=== PATIENT | female | born 1960 | race Caucasian/White ===

== ENCOUNTER 2020-04-20 13:25 | Emergency (ER) | payer BC, SELFPAY ==
[2020-04-20 13:26] VITALS: BP 155/79; PULSE 69; RESP 18; TEMP 36.5; O2SAT 98; BMI 39.9
--- NOTE | 2020-04-20 13:40 | CT_ITS ---
STUDY: CT ABDOMEN AND PELVIS WITH CONTRAST REASON FOR EXAM: Female, 60 years old. Trauma, fell off golf cart landing on butt and back, severe pelvic pain. Hx hypertension. RADIATION DOSAGE (If Supplied By Facility): CTDIvol = ( 18.48 ) mGy, DLP = ( 1378.95 ) mGycm TECHNIQUE: Transaxial images were obtained from the dome of the diaphragm to the symphysis pubis without oral contrast. IV 100mL Isovue-300 was administered. Sagittal and coronal images were reconstructed. Individualized dose optimization techniques were used for this CT. COMPARISON: None. FINDINGS: The visualized lung bases are unremarkable. The visualized portions of the heart are within normal limits. Normal liver. Normal gallbladder and extrahepatic biliary system. Normal spleen. Normal pancreas. Normal bilateral adrenal glands. Normal right kidney. Normal left kidney. There is a small hiatal hernia. Normal small intestine. There are multiple colonic diverticula consistent with diverticulosis. The appendix is visualized and appears normal. There is diffuse atherosclerotic calcification of the abdominal aorta, without a demonstrated aneurysm. Normal inferior vena cava. Normal retroperitoneum. Normal urinary bladder. There is absence of the uterus consistent with a prior hysterectomy. Normal abdominal wall. No demonstrated fracture of the lumbar spine, pelvis or sacrum. There is soft tissue density posterior to the coccyx on image 108 of series 2, possibly representing contusion. CT/Abdomen/Pelvis WITH Contrast IMPRESSION: 1. No solid organ injury, pneumoperitoneum or free fluid. 2. Soft tissue induration posterior to the coccyx may represent contusion. No demonstrated fracture. Electronically Signed: Erick Woodruff MD ([place]) at 14:15 EDT , Service support ,
--- NOTE | 2020-04-20 13:43 | ED.DCSUM_ITS ---
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 She was [place] fell out of the golf cart landing on her butt and her back. She has had back pain. She states she has pain in her thoracic and lumbar spine. She did not hit her head or lose consciousness. She is not on a blood thinner. She denies abdominal pain. She denies weakness or paresthesias. She has not lost control of her bowel or bladder function. She has not attempted to ambulate since this occurred. She denies any other injuries at this time. Denies extremity pain. Tetanus Immunization: Unknown Prior similar symptoms: No Recent Illness/Hospitalization: No Past Medical History - Allergies and Home Meds Allergies/Adverse Reactions: Allergies No Known Allergies Allergy (Verified 04/20/20 13:30) Primary Care Physician: Gabbie Steward,Out of [NON-STAFF] - Prior records reviewed: Yes Past Medical History: - - Chronic back pain and hypertension Surgical History: hysterectomy Lives: With Family Smoking Status: Never smoker Alcohol: Occasional Drugs: None Review of Systems All systems negative except as indicated General: Denies: Chills, Fever, Sweats Eyes: Denies: Visual changes - bilaterally, Diplopia ENT: Denies: Rhinorrhea, Sore throat Cardiovascular: Denies: Chest pain, Palpitations Respiratory: Denies: Dyspnea, Cough, Dyspnea on exertion Gastrointestinal: Denies: Abdominal pain, Nausea, Vomiting, Diarrhea, Melena, Hematochezia Genitourinary: Denies: Dysuria, Hematuria, Frequency Musculoskeletal: Reports: Back pain. Denies: Myalgias, Arthralgias, Neck pain, Swelling, Extremity Pain Skin: Denies: Rash, Wounds Neurological: Denies: Headache, Weakness, Numbness Physical Exam Vital Signs/Narrative: Vital Signs Temp Pulse Resp BP Pulse Ox 04/20/20 13:26 97.7 F L 69 18 155/79 H 98 Inital Vital Signs reviewed: Yes General: Well nourished, Well developed Head: Normocephalic, Atraumatic Eyes: Perrl, EOMI ENT: TM's clear, No hemotympanum or drainage, No trauma. Negative for: Hemotympanum, Nasal trauma, Nasal septal hematoma Neck: Nontender, Full ROM. Negative for: Spinal Tenderness, Paraspinal Tenderness Cardiovascular: Regular rate, Regular rhythm, No murmurs Respiratory: No distress, CTA bilaterally, Chest nontender Abdomen: Soft, Nontender, Nondistended, Normal bowel sounds Back: Paraspinal Tenderness, Negative SLR - Right, Negative SLR - Left. Negative for: Spinal Tenderness Skin: Normal color, No rash, No Trauma Neurological: Alert, Oriented x3, Cranial nerves II-XII grossly intact, Normal Strength, Normal Sensation Psychological: Normal affect Diagnostic/Tx/Re-eval Impressions Abdomen/Pelvis CT 04/20/20 13:40 IMPRESSION: 1. No solid organ injury, pneumoperitoneum or free fluid. 2. Soft tissue induration posterior to the coccyx may represent contusion. No demonstrated fracture. Electronically Signed: Erick Woodruff MD ([place]) at 14:15 EDT , Service support , Chest X-Ray 04/20/20 13:45 IMPRESSION: No airspace consolidation or pleural effusion. Electronically Signed: Erick Woodruff MD (Brooks) at 14:16 EDT , Service support , 04/20/20 13:40 Abdomen/Pelvis WITH Contrast [CT] Stat 04/20/20 13:45 Chest 1 View (Portable) [RAD] Stat Laboratory Results 04/20/20 04/20/20 04/20/20 14:00 14:00 14:00 WBC 9.5 RBC 3.56 L Hgb 10.8 L Hct 34.1 L MCV 95.8 MCH 30.3 MCHC 31.7 L RDW Std Deviation 45.7 H RDW Coeff of Kyle 13.0 Plt Count 279 MPV 9.1 Immature Gran % (Auto) 1.100 H Neut % (Auto) 73.0 H Lymph % (Auto) 16.2 L Archer % (Auto) 8.6 Eos % (Auto) 0.8 Baso % (Auto) 0.3 Absolute Neuts (auto) 6.9 Absolute Lymphs (auto) 1.53 Nucleated RBC % 0 PT 13.1 INR 1.0 APTT 28.6 Sodium 138 Potassium 3.7 Chloride 104 Carbon Dioxide 31.0 Anion Gap 3 L BUN 14 Creatinine 0.80 Estim Creat Clear Calc 59.89 Est GFR (MDRD) Af Amer 95 Est GFR (MDRD) Non-Af 79 BUN/Creatinine Ratio 17.6 Glucose 95 Calcium 7.9 L Total Bilirubin 0.30 Direct Bilirubin 0.09 AST 30 ALT 28 Alkaline Phosphatase 129 H Total Protein 7.0 Albumin 3.1 L Globulin 3.9 Ethyl Alcohol 04/20/20 14:00 WBC RBC Hgb Hct MCV MCH MCHC RDW Std Deviation RDW Coeff of Kyle Plt Count MPV Immature Gran % (Auto) Neut % (Auto) Lymph % (Auto) Archer % (Auto) Eos % (Auto) Baso % (Auto) Absolute Neuts (auto) Absolute Lymphs (auto) Nucleated RBC % PT INR APTT Sodium Potassium Chloride Carbon Dioxide Anion Gap BUN Creatinine Estim Creat Clear Calc Est GFR (MDRD) Af Amer Est GFR (MDRD) Non-Af BUN/Creatinine Ratio Glucose Calcium Total Bilirubin Direct Bilirubin AST ALT Alkaline Phosphatase Total Protein Albumin Globulin Ethyl Alcohol 7.0 - Medical Decision Making Patient had been given a total of 100 mcg of fentanyl by squad on arrival. Laboratory work-up is unremarkable including alcohol level. Chest x-ray was unremarkable. CT scan abdomen and pelvis with IV contrast showed a coccygeal contusion but no other acute abnormalities. Repeat exam patient is able to ambulate. She feels better after the fentanyl. She has pain medicine at home that she gets through pain management to take she will rest and ice and follow-up with her doctor in [place] on Wednesday ED Disposition - Plan for ED Patient: Disposition: Home or Assisted Living Diagnosis: Coccyx contusion, Chronic back pain Instructions: ED COCCYX CONTUSION Referrals: [facility] Doctor,Out of [NON-STAFF] -
--- NOTE | 2020-04-20 13:45 | RAD_ITS ---
STUDY: X-RAY CHEST REASON FOR EXAM: Female, 60 years old. FELL OUT OF GOLF CART, PAIN. PT UNABLE TO LAY FLAT D/T SHARP PAIN IN PELVIS/HIP TECHNIQUE: AP COMPARISON: None. FINDINGS: Patient is rotated causing artifactual attenuation of the right hemithorax, exacerbated by breast attenuation artifact. The lungs are clear and expanded. There is no demonstrated pleural abnormality. Normal size heart. Normal mediastinum and keyur. Normal visualized pulmonary arteries. Normal visualized aortic arch and descending thoracic aorta. Normal visualized thoracic spine. Normal visualized ribs, clavicles, and shoulders. There is no demonstrated abnormality of the visualized soft tissue structures of the upper abdomen. RAD/Chest 1 View (Portable) IMPRESSION: No airspace consolidation or pleural effusion. Electronically Signed: Erick Woodruff MD ([place]) at 14:16 EDT , Service support ,
[2020-04-20 14:11] LABS: Absolute Lymphocyte Count 1.53 X10^3/uL (0.83-4.51); Absolute Neutrophil Count 6.9 X10^3/uL (2.0-7.7); Basophil# 0.03 X10^3/uL; Basophil% 0.3 % (0-1); Eosinophil# 0.08 X10^3/uL; Eosinophils% 0.8 % (0-5); Hematocrit 34.1 % (37-47); Hemoglobin 10.8 g/dL (12.0-15.0); Lymphocyte # 1.53 X10^3/ul (4.0); Lymphocyte % 16.2 % (19-41); Mean Corp Hgb Conc 31.7 g/dL (32-36); Mean Corpuscular Hgb 30.3 pg (27.0-32.0); Mean Corpuscular Volume 95.8 fL (81-99); Mean Platelet Vol. 9.1 fl (6.2-12.0); Monocyte# 0.81 X10^3/uL; Monocyte% 8.6 % (0-10); NRBC Flagged by Analyzer 0 % (0-5); Neutrophil # 6.92 X10^3/uL (2.7-7.7); Platelet Count 279 K/mm3 (150-450); RBC Distribution Width SD 45.7 fl (35.1-43.9); Red Blood Count 3.56 M/mm3 (4.2-5.4); White Blood Count 9.5 K/mm3 (4.4-11.0)
[2020-04-20] MEDS: 0.9% Normal Saline 1,000 ML 999 ML IV (14:11)
[2020-04-20 14:19] LABS: Partial Thromboplast Time 28.6 Seconds (24.1-36.2); Prothrombin Time (Protime)PT. 13.1 SECONDS (11.7-14.9)
[2020-04-20 14:36] LABS: AST(SGOT) 30 U/L (15-37); Alanine Aminotransfer ALT/SGPT 28 U/L (13-56); Albumin, Serum 3.1 g/dL (3.2-5.0); Alkaline Phosphatase 129 U/L (45-117); Anion Gap 3 (5-15); BUN 14 mg/dL (7-18); BUN/Creat Ratio 17.6 RATIO (10-20); Bilirubin, Direct 0.09 mg/dL (0.00-0.30); Calcium,Total 7.9 mg/dL (8.5-10.1); Chloride 104 mmol/L (98-107); EST Glomerular Filtration Rate 79 mL/min (>60); Est Glom Filt Rate - Afr Amer 95 mL/min (>60); Estimated Creatinine Clearance 59.89 ml/min; Globulin 3.9 g/dL (2.2-4.2); Glucose 95 mg/dL (74-106); Potassium 3.7 mmol/L (3.5-5.1); Sodium Level 138 mmol/L (136-145)
--- NOTE | 2020-04-20 14:41 | ED.DCSUM_ITS ---
- ER Visit Summary Date of Service: 04/20/20 Chief Complaint: [Addendum to the dictation by physician assistant professor of education Marco Woods] History of Present Illness: The patient is a 60 F [presents to the emergency department via EMS after falling out of a golf cart. Patient states that she went around a turn and slipped out of the golf card and landed on her buttocks. Patient states that she had a jolt of pain from her low back all the way up her upper back and she immediately lost control of her bowel and bladder. She denies any weakness to the extremities. EMS gave patient 100 mcg of fentanyl. Patient has history of chronic back pain and is in pain management in [place]. They are visiting a campground from [place]. Patient denies striking her head. Denies loss of consciousness. She denies neck pain.] Physical Examination: HEENT-PERRLA, EOMI. Cranial nerves II through XII grossly intact. TMs clear. Mucous membranes moist. No adenopathy. No external evidence of trauma to her head. No C-spine tenderness on palpation. Cardiovascular-regular rate and rhythm without murmur or ectopy Lungs-clear to auscultation, chest wall stable without crepitus or subcu emphysema Abdomen-normoactive bowel sounds, soft, nontender, no rebound or rigidity, no peritoneal signs. Back exam-patient has diffuse tenderness over lumbar spine. No bony step-offs noted. No external evidence of trauma. Negative straight leg raises. Deep tendon reflexes are plus 2 out of 4 bilaterally at the patella and Achilles. Patient has normal 5 extension. Extremities-intact ?4, normal range of motion, normal pulses, atraumatic [] Test Results: [CBC with differential obtained was normal. Chemistries and LFTs unremarkable.] Chest x-ray showed nothing acute. CT scan of the abdomen pelvis with IV contrast showed possible contusion over the coccyx/sacrum without any fractures. Emergency Department Course and Treatment: [Patient was medicated with Dilaudid 1 mg IV and Zofran 4 mg IV. Given that patient is in pain management she is advised] that she will need to follow-up with them for further pain management. Treatment Plan: [Discharged home in stable condition with recommendation to follow-up with primary care physician pain management for the next 3 to 5 days.] Disposition: [Discharged] Impression: [Fall Contusion back] This note was generated with Dragon dictation software. It may contain incorrect words, spelling, and punctuation that were not noted in review of the chart prior to signing ED Disposition - Plan for ED Patient: Referrals: [facility] Doctor,Out of [Primary Care Provider] -
[2020-04-20] MEDS: Ondansetron 4 MG/2 ML Vial IV (15:10)
[2020-04-20] MEDS: HYDROmorphone 1 MG/ML Syringe IV (15:10)
[2020-04-20 15:37] VITALS: BP 150/70; PULSE 80; RESP 20; O2SAT 99
== END 2020-04-20 15:42 | disposition home or self-care (01) ==
PROVIDERS: Emergency Provider Physician Assistant Medical
DX: S30.0XXA Contusion of lower back and pelvis, initial encounter (principal); V86.99XA Unspecified occupant of other special all-terrain or other off-road motor vehicle injured in nontraffic accident, initial encounter; Y93.9 Activity, unspecified; Y92.833 Campsite as the place of occurrence of the external cause; Y99.9 Unspecified external cause status; I10 Essential (primary) hypertension; M54.9 Dorsalgia, unspecified; G89.29 Other chronic pain
CPT/HCPCS: 71045; 74177; 80048; 80076; 80320; 85025; 85610; 85730; 96361; 96374; 96375; 99285; Q9967; A4216; G0480; J2405